=== PATIENT | female | born 1985 | race African-American/Black ===

== ENCOUNTER 2016-05-27 18:46 | Emergency (ER) | payer SELFPAY ==
[~2016-05-27] VITALS: Ht 162.6 cm; Wt 90.7 kg
[~2016-05-27 18:46] MED LIST: IBUPROFEN600 MG ORAL; TRAMADOL HCL50 MG ORAL
[2016-05-27] MEDS ORDERED: NKM (19:08)
[2016-05-27 19:16] VITALS: BP 120/76
[2016-05-27] MEDS ORDERED: Methocarbamol 750mg tab ORAL ONE (19:30)
[2016-05-27] MEDS ORDERED: Ketorolac 30mg Inj IM ONE (19:30)
[2016-05-27] MEDS ORDERED: IBUPROFEN600 MG ORAL (20:27)
[2016-05-27] MEDS ORDERED: ROBAXIN-750750 MG PO (20:27)
[2016-05-27 20:30] VITALS: BP 120/76
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
== END 2016-05-27 20:30 | disposition home or self-care (01) ==
LOC: EMR 19:55
DX: T14.8 Other injury of unspecified body region (principal); V43.52XA Car driver injured in collision with other type car in traffic accident, initial encounter; Y92.410 Unspecified street and highway as the place of occurrence of the external cause; Y99.8 Other external cause status
CPT/HCPCS: 96372; 99283; J1885

== ENCOUNTER 2018-11-01 22:55 | Emergency (ER) | payer MEDICAID ==
[~2018-11-01] VITALS: Ht 162.6 cm; Wt 90.7 kg
[~2018-11-01 22:55] MED LIST changes: +NKM; +ROBAXIN-750750 MG PO
[2018-11-01] MEDS ORDERED: FERROUS SULFAT325 MG ORAL (23:04)
[2018-11-01 23:05] VITALS: BP 138/84
--- NOTE | 2018-11-01 23:05 | NUR ---
ED Nurse Note: Patient walked into ED due to numbness on the fingertips of her right hand, states that she took an adderrall pill 2 days ago 10/30/18 and states that she hasnt been feeling the same. Patient is tachycardic 120 at triage. No stated medical history. Alert and oriented, verbally responsive. Breathing even and unlabored. No SOB. VSS.
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
[2018-11-01 23:31] LABS: APPEARANCE,URINE CLEAR; BILIRUBIN, URINE NEGATIVE (NEGATIVE); COLOR,URINE PALE YELLOW; GLUCOSE, URINE (UA) NEGATIVE (NEGATIVE); KETONES,URINE 3+ (NEGATIVE); LEUKOCYTE ESTERASE ,URINE 1+ (NEGATIVE); NITRITE,URINE NEGATIVE (NEGATIVE); PH,URINE 6 (4.5-8.0); PROTEIN,URINE 1+ (NEGATIVE); UROBILINOGEN,URINE NORMAL MG/DL (0.0-1.0)
--- NOTE | 2018-11-01 23:32 | NUR ---
ED Nurse Note: Urine specimen collected and sent to lab.
[2018-11-02] MEDS ORDERED: MACROBID100 MG ORAL (00:01)
[2018-11-02 00:07] VITALS: BP 138/84
--- NOTE | 2018-11-02 00:07 | NUR ---
ED Nurse Note: Pt cleared by ERMD for discharge. DC instructions/prescription was given and explained to pt and verbalized understanding of teachings. All medical deviecs such as ID band removed. Pt is AAO x4, ambulatory and left with all personal belongings.
== END 2018-11-02 00:07 | disposition home or self-care (01) ==
LOC: EMR 23:18
DX: M25.542 Pain in joints of left hand (principal); F14.10 Cocaine abuse, uncomplicated; N30.00 Acute cystitis without hematuria; M54.9 Dorsalgia, unspecified; R00.0 Tachycardia, unspecified
CPT/HCPCS: 80307; 81003; 81025; Z7502; 99283